=== PATIENT | male | born 1995 | race Caucasian/White ===

== ENCOUNTER 2021-09-27 08:20 | Emergency (ER) | payer MEDICAID ==
[~2021-09-27] VITALS: Ht 185.4 cm; Wt 99.8 kg
[2021-09-27 08:40] VITALS: BP 136/93
--- NOTE | 2021-09-27 10:04 | NUR ---
DR VALENCIA AT BEDSIDE FOR EVALUATION
[2021-09-27] MEDS ORDERED: diazePAM 5 MG TAB PO ONE (10:10)
[2021-09-27] MEDS ORDERED: KETOROLAC 30 MG/ML VIAL IM ONE (10:10)
--- NOTE | 2021-09-27 10:18 | NUR ---
26YO MALE PT C/O TIGHT 09/19 R LOWER BACK PAIN XYESTERDAY. PT REPORTS SUDDEN ONSET AND STATES DISCOMFORT WHEN EXTENDING BACK. PT MOST COMFORTABLE SITTING OR LEANING FORWARD. DENIES RECENT INJURY OR HEAVVY PHYSICAL ACTIVITY. BACK HAS NO VISIBLE INJURY AND IS TENDER TO TOUCH. PT DENIES TAKING MEDICATION FOR PAIN. PT AMBULATORY W/ STEADY GAIT. PT AAOX4, NO VISIBLE DISTRESS. PT SITTING UP IN BED PER COMFORT. NKA HX: DENIES
--- NOTE | 2021-09-27 10:24 | NUR ---
PT BACK FROM XR
[2021-09-27] MEDS ORDERED: IBUP100S26 PO (11:16)
[2021-09-27 11:31] VITALS: BP 137/87
--- NOTE | 2021-09-27 11:31 | NUR ---
Patient discharged with v/s stable. Written and verbal after care instructions FOR ACUTE BACK PAIN AND BACK EXCERCISES given and explained. Patient alert, oriented and verbalized understanding of instructions. Ambulatory with steady gait. All questions addressed prior to discharge. ID band removed. Patient advised to follow up with PMD. Rx of CHILDRENS IBUPROFEN given.Opportunity to ask questions provided and answered.
--- NOTE | 2021-09-27 11:32 | NUR ---
Chart checked and completed. The patient's care was reviewed and supervised by Mia Deleon RN.
== END 2021-09-27 11:31 | disposition home or self-care (01) ==
LOC: MED 08:20
DX: S39.012A Strain of muscle, fascia and tendon of lower back, initial encounter (principal); F12.90 Cannabis use, unspecified, uncomplicated; Z79.899 Other long term (current) drug therapy; X58.XXXA Exposure to other specified factors, initial encounter; Y93.89 Activity, other specified; Y92.89 Other specified places as the place of occurrence of the external cause; Y99.8 Other external cause status
CPT/HCPCS: 72100; 96372; 99283; J1885